=== PATIENT | female | born 2000 | race Caucasian/White ===

== ENCOUNTER 2021-04-16 20:08 | Observation (INO) | payer MEDICAID ==
[~2021-04-16] VITALS: Ht 160 cm; Wt 69.9 kg
[2021-04-16] MEDS ORDERED: PREN1TAB78 MT (22:11)
== END 2021-04-16 22:37 | disposition home or self-care (01) ==
LOC: 8 EST LDRP 20:08
PROVIDERS: ADMIT Obstetrics & Gynecology; ATTEND Obstetrics & Gynecology
DX: O26.893 Other specified pregnancy related conditions, third trimester (principal); R10.30 Lower abdominal pain, unspecified; Y04.8XXA Assault by other bodily force, initial encounter; Y93.89 Activity, other specified; Y92.89 Other specified places as the place of occurrence of the external cause; Y99.8 Other external cause status; Z3A.37 37 weeks gestation of pregnancy
CPT/HCPCS: 59025; 76805; 76818; G0378; 99281; G0379